=== PATIENT | male | born 1995 | race Caucasian/White ===

== ENCOUNTER 2020-04-08 22:59 | Emergency (ER) | payer OTHER ==
[2020-04-08] MEDS ORDERED: Boostrix 0.5 ML (Tdap) VIAL ONE (23:23)
[2020-04-08] MEDS ORDERED: Lidocaine 1% w/Epinephrine 1:100K 20 ML VIAL ONE (23:26)
[2020-04-08] MEDS ORDERED: Amoxicillin/Potassium Clav 875 MG TAB ONE (23:26)
[2020-04-09] MEDS ORDERED: Sodium Chloride Irrig Solution 250 ML ONE (00:14)
== END 2020-04-09 00:08 | disposition home or self-care (01) ==
LOC: MADERS 22:59
DX: S01.512A Laceration without foreign body of oral cavity, initial encounter (principal); S01.81XA Laceration without foreign body of other part of head, initial encounter; F17.210 Nicotine dependence, cigarettes, uncomplicated; Z79.899 Other long term (current) drug therapy; V86.59XA Driver of other special all-terrain or other off-road motor vehicle injured in nontraffic accident, initial encounter
CPT/HCPCS: 12053; 90471; 90715